=== PATIENT | male | born 1950 | race African-American/Black ===

== ENCOUNTER 2021-02-04 16:10 | Inpatient (IN) | payer MEDICARE, OTHER ==
[~2021-02-04] VITALS: Ht 185.4 cm; Wt 111.8 kg
[2021-02-04] VITALS (20 sets, daily range): BP systolic 64–149; BP diastolic 42–129
[2021-02-04] MEDS ORDERED: AMLODIPINE BESY10 MG PO (16:35)
[2021-02-04] MEDS ORDERED: ERGOCAL62.5 MCG PO (16:35)
[2021-02-04] MEDS ORDERED: CITALOPRAM HBR20 MG PO (16:35)
[2021-02-04] MEDS ORDERED: ZESTRIL10 MG PO (16:35)
[2021-02-04] MEDS ORDERED: VITAMIN C500 M4 PO (16:42)
[2021-02-04] MEDS ORDERED: GUAIFENESI100 MG/5 M PO (16:42)
[2021-02-04] MEDS ORDERED: OMEPRAZOLE40 MG PO (16:42)
[2021-02-04] MEDS ORDERED: ACIDOPHILUS1 EAC1 PO (16:42)
[2021-02-04] MEDS ORDERED: NEPHRO-VITE TABL1 EA PO (16:42)
[2021-02-04] MEDS ORDERED: BASAGLAR K100 UNIT/1 SC (16:42)
[2021-02-04] MEDS ORDERED: ASPIRIN81 MG PO (16:42)
[2021-02-04] MEDS ORDERED: CALCIUM ACETAT667 M1 PO (16:42)
[2021-02-04] MEDS ORDERED: PREDNISONE5 MG PO (16:42)
[2021-02-04] MEDS ORDERED: HUMALOG100 UNIT/1 (16:47)
[2021-02-04] MEDS ORDERED: LIPITOR20 MG PO (16:52)
[2021-02-04] MEDS ORDERED: TYLENOL # 31 EA PO (16:52)
[2021-02-04] MEDS ORDERED: COREG12.5 MG PO (16:52)
[2021-02-04] MEDS ORDERED: NEURONTIN100 MG PO (16:52)
[2021-02-04] MEDS ORDERED: CLONIDINE HCL0.1 MG PO (16:52)
[2021-02-04] MEDS: DEXTROSE 10% 1,000 ML IV SCH (17:21)
[2021-02-04] MEDS: PIPERACILLIN/TAZOBACTAM 2.25 GM in SODIUM CHLORIDE 0.9% 50ML 50 ML IV SCH (17:38)
[2021-02-04] MEDS: NOREPINEPHRINE 8 MG/D5W 250 ML 250 ML IV PRN (18:00)
[2021-02-04] MEDS ORDERED: SODIUM CHLORIDE 0.9% 1000ML 1,000 ML IV ONE (19:30)
[2021-02-04] MEDS: FENTANYL 2000MCG/NS 250 250 ML IV SCH (19:59)
[2021-02-04 20:04] LABS: BASOPHILS % 0.1 % (0.0-1.0); HEMATOCRIT 33.1 % (38.2-49.6); HEMOGLOBIN 9.4 g/dL (14.0-18.0); LYMPHOCYTES # (AUTO) 0.3 (1.0-3.2); LYMPHOCYTES % 4.2 % (18.0-39.1); MEAN CORPUSCULAR HEMOGLOBIN 24.6 pg (28-32); MEAN CORPUSCULAR HGB CONC 28.4 g/dL (31-35); MEAN CORPUSCULAR VOLUME 86.6 fL (81-99); MONOCYTES # (AUTO) 0.3 (0.2-0.8); MONOCYTES % 4.3 % (4.4-11.3); NEUTROPHILS # (AUTO) 6.8 (2.1-6.9); NEUTROPHILS % 91.1 % (38.7-80.0); PLATELET COUNT 129 x10e3/uL (140-360); RED BLOOD COUNT 3.82 x10e6/uL (4.3-5.7); RED CELL DISTRIBUTION WIDTH 19.5 % (11.7-14.4)
[2021-02-04 20:12] LABS: INR 1.09; PARTIAL THROMBOPLASTIN TIME 35.4 seconds (23.8-35.5); PROTHROMBIN TIME 14.7 seconds (11.9-14.5)
[2021-02-04 20:19] LABS: ANION GAP 13.9 mmol/L (8-16); CALCIUM 9.1 mg/dL (8.4-10.2); CREATININE, SERUM 6.98 mg/dL (0.72-1.25); POTASSIUM 3.9 mmol/L (3.5-5.1)
[2021-02-04 20:21] LABS: ABG HCO3 26 mmol/L (22-26); ABG PCO2 57 mmHg (35-45); ABG PH 7.25 (7.35-7.45); ABG PO2 59 mmHg (80-105); ABG TCO2 27
[2021-02-04 21:17] LABS: BAND NEUTROPHILS % (MANUAL) 6 %; LYMPHOCYTES % (MANUAL) 5 % (19-48); METAMYELOCYTES % (MANUAL) 8 % (0-0); MONOCYTES % (MANUAL) 3 % (3.4-9.0); MYELOCYTES % (MANUAL) 3 % (0-0); NEUTROPHILS % (MANUAL) 75 % (40-74); PLATELET ESTIMATE SLIGHTLY DECREASED; PLATELET MORPHOLOGY COMMENT FEW GIANT
[2021-02-04 21:18] LABS: HYPOCHROMASIA SLIGHT
[2021-02-05] VITALS (17 sets, daily range): BP systolic 81–157; BP diastolic 50–130
[2021-02-05] MEDS ORDERED: ATROPINE SULFATE 0.1 MG/ML 10ML SYR ONE (00:16)
[2021-02-05] MEDS: PIPERACILLIN/TAZOBACTAM 2.25 GM in SODIUM CHLORIDE 0.9% 50ML 50 ML IV SCH ×3 (00:32→13:57)
[2021-02-05] MEDS: DEXTROSE 10% 1,000 ML IV SCH ×2 (03:30→13:51)
[2021-02-05 05:45] LABS: BASOPHILS % 0.2 % (0.0-1.0); EOSINOPHILS % 0.2 % (0.0-6.0); HEMATOCRIT 31.2 % (38.2-49.6); HEMOGLOBIN 9.3 g/dL (14.0-18.0); LYMPHOCYTES # (AUTO) 0.4 (1.0-3.2); LYMPHOCYTES % 2.2 % (18.0-39.1); MEAN CORPUSCULAR HEMOGLOBIN 25.3 pg (28-32); MEAN CORPUSCULAR HGB CONC 29.8 g/dL (31-35); MEAN CORPUSCULAR VOLUME 84.8 fL (81-99); MONOCYTES # (AUTO) 0.6 (0.2-0.8); MONOCYTES % 3.3 % (4.4-11.3); NEUTROPHILS # (AUTO) 16.9 (2.1-6.9); NEUTROPHILS % 93.7 % (38.7-80.0); PLATELET COUNT 150 x10e3/uL (140-360); RED BLOOD COUNT 3.68 x10e6/uL (4.3-5.7); RED CELL DISTRIBUTION WIDTH 19.6 % (11.7-14.4)
[2021-02-05 06:37] LABS: ANION GAP 15.3 mmol/L (8-16); CALCIUM 8.9 mg/dL (8.4-10.2); CREATININE, SERUM 7.03 mg/dL (0.72-1.25); POTASSIUM 4.3 mmol/L (3.5-5.1)
[2021-02-05 07:32] LABS: BAND NEUTROPHILS % (MANUAL) 16 %; LYMPHOCYTES % (MANUAL) 3 % (19-48); MONOCYTES % (MANUAL) 1 % (3.4-9.0); NEUTROPHILS % (MANUAL) 80 % (40-74)
[2021-02-05 07:34] LABS: HYPOCHROMASIA SLIGHT; PLATELET ESTIMATE ADEQUATE
[2021-02-05 07:35] LABS: PLATELET MORPHOLOGY COMMENT FEW GIANT
[2021-02-05 07:36] LABS: ANISOCYTOSIS MODERATE; RBC MORPHOLOGY COMMENT ABNORMAL
[2021-02-05 07:37] LABS: POIKILOCYTOSIS SLIGHT
[2021-02-05] MEDS ORDERED: HEPARIN SOD (PORCINE) 1000 UNIT/ML SDV ONE (09:13)
[2021-02-05] MEDS ORDERED: SODIUM CHLORIDE 0.9% 1000ML 2,000 ML ONE (09:13)
[2021-02-05] MEDS ORDERED: GENTAMICIN 120MG/NS 100ML 100 ML IV STA (10:20)
[2021-02-05] MEDS ORDERED: ALBUMIN 25% 25GM 100ML 200 ML ONE (10:24)
[2021-02-05] MEDS ORDERED: Vancomycin IV 1 GM in SODIUM CHLORIDE 0.9% 250ML 250 ML IV ONE ×2 (10:30→14:00)
[2021-02-05] MEDS ORDERED: INSULIN LISPRO 100 UNIT/1 ML 3ML VIAL SQ SCH (11:30)
[2021-02-05 11:48] LABS: % IRON SATURATION 13 % (15-50); IRON 18 ug/dL (65-175); TOTAL IRON BINDING CAPACITY 140 ug/dL (261-478); TRANSFERRIN 100 mg/dL (174-364)
[2021-02-05 14:55] LABS: ABG HCO3 29 mmol/L (22-26); ABG PCO2 51 mmHg (35-45); ABG PH 7.35 (7.35-7.45); ABG PO2 75 mmHg (80-105); ABG TCO2 30
[2021-02-05] MEDS: INSULIN LISPRO 100 UNIT/1 ML 3ML VIAL SQ SCH ×2 (16:30→21:00)
[2021-02-05] MEDS ORDERED: SODIUM CHLORIDE 0.9% 50ML 50 ML ONE (17:35)
[2021-02-05] MEDS ORDERED: IOPAMIDOL 370 MG/ML 200 ML INFUS..BTL INJ ONE (17:36)
[2021-02-05] MEDS: FENTANYL 2000MCG/NS 250 250 ML IV SCH (19:30)
[2021-02-05] MEDS: HEPARIN SOD (PORCINE) 5,000 UNIT/ML VIAL SC SCH (21:43)
[2021-02-06] VITALS (16 sets, daily range): BP systolic 98–136; BP diastolic 45–62
[2021-02-06 05:54] LABS: BASOPHILS % 0.3 % (0.0-1.0); EOSINOPHILS % 0.2 % (0.0-6.0); HEMATOCRIT 26.7 % (38.2-49.6); HEMOGLOBIN 7.9 g/dL (14.0-18.0); LYMPHOCYTES # (AUTO) 0.8 (1.0-3.2); LYMPHOCYTES % 5.8 % (18.0-39.1); MEAN CORPUSCULAR HEMOGLOBIN 24.6 pg (28-32); MEAN CORPUSCULAR HGB CONC 29.6 g/dL (31-35); MEAN CORPUSCULAR VOLUME 83.2 fL (81-99); MONOCYTES # (AUTO) 0.8 (0.2-0.8); MONOCYTES % 6.2 % (4.4-11.3); NEUTROPHILS # (AUTO) 11.6 (2.1-6.9); NEUTROPHILS % 86.9 % (38.7-80.0); PLATELET COUNT 126 x10e3/uL (140-360); RED BLOOD COUNT 3.21 x10e6/uL (4.3-5.7); RED CELL DISTRIBUTION WIDTH 19.6 % (11.7-14.4)
[2021-02-06] MEDS: NOREPINEPHRINE 8 MG/D5W 250 ML 250 ML IV PRN (05:59)
[2021-02-06 06:11] LABS: ANION GAP 12.6 mmol/L (8-16); CALCIUM 8.9 mg/dL (8.4-10.2); CREATININE, SERUM 4.93 mg/dL (0.72-1.25); POTASSIUM 3.6 mmol/L (3.5-5.1)
[2021-02-06] MEDS: INSULIN LISPRO 100 UNIT/1 ML 3ML VIAL SQ SCH ×4 (07:01→20:45)
[2021-02-06] MEDS: MEROPENEM 500 MG in SODIUM CHLORIDE 0.9% 50ML 50 ML IV SCH (08:51)
[2021-02-06] MEDS: HEPARIN SOD (PORCINE) 5,000 UNIT/ML VIAL SC SCH ×2 (08:57→19:47)
[2021-02-06] MEDS ORDERED: LACTULOSE SYRUP 20 GM/30 ML UDC PO ONE (14:50)
[2021-02-06] MEDS ORDERED: Vancomycin IV 1 GM in SODIUM CHLORIDE 0.9% 250ML 250 ML IV SCH (16:00)
[2021-02-06] MEDS: FENTANYL 2000MCG/NS 250 250 ML IV SCH (19:46)
[2021-02-06] MEDS: HYDROCORTISONE SOD SUCCINATE 100 MG VIAL IV SCH (20:45)
[2021-02-07] VITALS (26 sets, daily range): BP systolic 96–146; BP diastolic 37–65
[2021-02-07 05:43] LABS: BASOPHILS % 0.2 % (0.0-1.0); HEMATOCRIT 25.6 % (38.2-49.6); HEMOGLOBIN 7.8 g/dL (14.0-18.0); LYMPHOCYTES # (AUTO) 0.5 (1.0-3.2); LYMPHOCYTES % 3.6 % (18.0-39.1); MEAN CORPUSCULAR HGB CONC 30.5 g/dL (31-35); MEAN CORPUSCULAR VOLUME 82.1 fL (81-99); MONOCYTES # (AUTO) 0.4 (0.2-0.8); MONOCYTES % 3.4 % (4.4-11.3); NEUTROPHILS # (AUTO) 11.8 (2.1-6.9); NEUTROPHILS % 92.3 % (38.7-80.0); PLATELET COUNT 143 x10e3/uL (140-360); RED BLOOD COUNT 3.12 x10e6/uL (4.3-5.7); RED CELL DISTRIBUTION WIDTH 19.9 % (11.7-14.4)
[2021-02-07 05:57] LABS: CALCIUM 9.3 mg/dL (8.4-10.2); CREATININE, SERUM 6.35 mg/dL (0.72-1.25)
[2021-02-07] MEDS: HYDROCORTISONE SOD SUCCINATE 100 MG VIAL IV SCH ×3 (06:19→21:08)
[2021-02-07] MEDS: INSULIN LISPRO 100 UNIT/1 ML 3ML VIAL SQ SCH ×4 (06:19→21:00)
[2021-02-07 07:13] LABS: ANION GAP 14.6 mmol/L (8-16)
[2021-02-07 07:16] LABS: POTASSIUM 4.6 mmol/L (3.5-5.1)
[2021-02-07 07:17] LABS: ABG HCO3 28 mmol/L (22-26); ABG PCO2 45 mmHg (35-45); ABG PH 7.38 (7.35-7.45); ABG PO2 56 mmHg (80-105); ABG TCO2 29
[2021-02-07 09:07] LABS: BAND NEUTROPHILS % (MANUAL) 1 %; LYMPHOCYTES % (MANUAL) 1 % (19-48); MONOCYTES % (MANUAL) 1 % (3.4-9.0); NEUTROPHILS % (MANUAL) 97 % (40-74)
[2021-02-07 09:08] LABS: ANISOCYTOSIS SLIGHT; HYPOCHROMASIA SLIGHT; PLATELET ESTIMATE ADEQUATE; PLATELET MORPHOLOGY COMMENT NORMAL; RBC MORPHOLOGY COMMENT ABNORMAL; TARGET CELLS FEW
[2021-02-07] MEDS ORDERED: SODIUM CHLORIDE 0.9% 1000ML 2,000 ML ONE (09:12)
[2021-02-07] MEDS ORDERED: ALBUMIN 25% 25GM 100ML 100 ML ONE (09:13)
[2021-02-07] MEDS: HEPARIN SOD (PORCINE) 5,000 UNIT/ML VIAL SC SCH ×2 (10:54→21:08)
[2021-02-07] MEDS ORDERED: LIDOCAINE HCL 1% LOCAL INJ 20 ML VIAL INJ ONE (12:00)
[2021-02-07] MEDS: MEROPENEM 500 MG in SODIUM CHLORIDE 0.9% 50ML 50 ML IV SCH (18:01)
[2021-02-07] MEDS: FENTANYL 2000MCG/NS 250 250 ML IV SCH (19:30)
[2021-02-08] VITALS: BP 156/61
[2021-02-08 06:25] LABS: BASOPHILS % 0.2 % (0.0-1.0); HEMATOCRIT 24.9 % (38.2-49.6); HEMOGLOBIN 7.4 g/dL (14.0-18.0); LYMPHOCYTES # (AUTO) 0.6 (1.0-3.2); LYMPHOCYTES % 5.5 % (18.0-39.1); MEAN CORPUSCULAR HEMOGLOBIN 24.8 pg (28-32); MEAN CORPUSCULAR HGB CONC 29.7 g/dL (31-35); MEAN CORPUSCULAR VOLUME 83.6 fL (81-99); MONOCYTES # (AUTO) 0.3 (0.2-0.8); MONOCYTES % 3.1 % (4.4-11.3); NEUTROPHILS % 90.5 % (38.7-80.0); PLATELET COUNT 138 x10e3/uL (140-360); RED BLOOD COUNT 2.98 x10e6/uL (4.3-5.7); RED CELL DISTRIBUTION WIDTH 19.8 % (11.7-14.4)
[2021-02-08] MEDS: HYDROCORTISONE SOD SUCCINATE 100 MG VIAL IV SCH ×2 (06:29→21:47)
[2021-02-08 06:40] LABS: ALBUMIN 2.6 g/dL (3.5-5.0); ALBUMIN/GLOBULIN RATIO 0.9 (0.8-2.0); ANION GAP 12.5 mmol/L (8-16); CALCIUM 9.5 mg/dL (8.4-10.2); CREATININE, SERUM 4.55 mg/dL (0.72-1.25); POTASSIUM 4.5 mmol/L (3.5-5.1)
[2021-02-08 06:59] LABS: MAGNESIUM 1.9 MG/DL (1.3-2.1); PHOSPHORUS 3.3 MG/DL (2.3-4.7)
[2021-02-08] MEDS: INSULIN LISPRO 100 UNIT/1 ML 3ML VIAL SQ SCH ×4 (07:09→21:00)
[2021-02-08] MEDS ORDERED: VANCOMYCIN 1GM/NS 250 ML 250 ML IV SCH (09:00)
[2021-02-08] MEDS: Vancomycin IV 1 GM in SODIUM CHLORIDE 0.9% 250ML 250 ML IV SCH (09:03)
[2021-02-08] MEDS: MEROPENEM 500 MG in SODIUM CHLORIDE 0.9% 50ML 50 ML IV SCH (09:03)
[2021-02-08] MEDS: HEPARIN SOD (PORCINE) 5,000 UNIT/ML VIAL SC SCH ×2 (09:09→21:47)
[2021-02-08 09:23] LABS: HYPOCHROMASIA SLIGHT; LYMPHOCYTES % (MANUAL) 2 % (19-48); MONOCYTES % (MANUAL) 3 % (3.4-9.0); NEUTROPHILS % (MANUAL) 95 % (40-74); PLATELET ESTIMATE ADEQUATE; PLATELET MORPHOLOGY COMMENT NORMAL; RBC MORPHOLOGY COMMENT NORMAL
[2021-02-08] MEDS: IRON SUCROSE 100 MG in SODIUM CHLORIDE 0.9% 100 ML 100 ML IV SCH (11:38)
[2021-02-08 11:54] LABS: ABG PH 7.45 (7.35-7.45)
[2021-02-08 11:55] LABS: ABG HCO3 31 mmol/L (22-26); ABG PCO2 46 mmHg (35-45); ABG PO2 212 mmHg (80-105); ABG TCO2 33
[2021-02-08] MEDS: FENTANYL 2000MCG/NS 250 250 ML IV SCH (19:54)
[2021-02-09 06:16] LABS: BASOPHILS % 0.1 % (0.0-1.0); HEMATOCRIT 25.4 % (38.2-49.6); HEMOGLOBIN 7.4 g/dL (14.0-18.0); LYMPHOCYTES # (AUTO) 0.5 (1.0-3.2); MEAN CORPUSCULAR HEMOGLOBIN 24.4 pg (28-32); MEAN CORPUSCULAR HGB CONC 29.1 g/dL (31-35); MEAN CORPUSCULAR VOLUME 83.8 fL (81-99); MONOCYTES # (AUTO) 0.3 (0.2-0.8); MONOCYTES % 3.4 % (4.4-11.3); NEUTROPHILS # (AUTO) 6.8 (2.1-6.9); NEUTROPHILS % 89.1 % (38.7-80.0); PLATELET COUNT 147 x10e3/uL (140-360); RED BLOOD COUNT 3.03 x10e6/uL (4.3-5.7); RED CELL DISTRIBUTION WIDTH 19.9 % (11.7-14.4)
[2021-02-09 06:33] LABS: ANION GAP 13.2 mmol/L (8-16); CREATININE, SERUM 5.71 mg/dL (0.72-1.25); POTASSIUM 5.2 mmol/L (3.5-5.1)
[2021-02-09] MEDS: MEROPENEM 500 MG in SODIUM CHLORIDE 0.9% 50ML 50 ML IV SCH (08:14)
[2021-02-09] MEDS: Vancomycin IV 1 GM in SODIUM CHLORIDE 0.9% 250ML 250 ML IV SCH (08:14)
[2021-02-09] MEDS: HYDROCORTISONE SOD SUCCINATE 100 MG VIAL IV SCH ×2 (08:14→21:00)
[2021-02-09] MEDS: HEPARIN SOD (PORCINE) 5,000 UNIT/ML VIAL SC SCH ×2 (08:17→21:00)
[2021-02-09] MEDS: INSULIN LISPRO 100 UNIT/1 ML 3ML VIAL SQ SCH ×4 (08:18→21:00)
[2021-02-09] MEDS: IRON SUCROSE 100 MG in SODIUM CHLORIDE 0.9% 100 ML 100 ML IV SCH (12:25)
[2021-02-09] MEDS ORDERED: SODIUM CHLORIDE 0.9% 1000ML 2,000 ML ONE (13:09)
[2021-02-09] MEDS: FENTANYL 2000MCG/NS 250 250 ML IV SCH (19:30)
[2021-02-10] VITALS (18 sets, daily range): BP systolic 110–187; BP diastolic 49–92
[2021-02-10] MEDS: INSULIN LISPRO 100 UNIT/1 ML 3ML VIAL SQ SCH ×4 (07:30→21:00)
[2021-02-10] MEDS: Vancomycin IV 1 GM in SODIUM CHLORIDE 0.9% 250ML 250 ML IV SCH (09:00)
[2021-02-10] MEDS: HEPARIN SOD (PORCINE) 5,000 UNIT/ML VIAL SC SCH ×2 (09:00→22:31)
[2021-02-10] MEDS: MEROPENEM 500 MG in SODIUM CHLORIDE 0.9% 50ML 50 ML IV SCH (09:00)
[2021-02-10] MEDS: HYDROCORTISONE SOD SUCCINATE 100 MG VIAL IV SCH ×2 (09:00→22:31)
[2021-02-10] MEDS ORDERED: HYDRALAZINE HCL 20 MG/ML VIAL ONE (10:26)
[2021-02-10] MEDS: IRON SUCROSE 100 MG in SODIUM CHLORIDE 0.9% 100 ML 100 ML IV SCH (11:00)
[2021-02-10] MEDS ORDERED: SODIUM CHLORIDE 0.9% 250ML 250 ML IV PRN (12:30)
[2021-02-10] MEDS ORDERED: ALBUMIN 25% 12.5GM 50ML 50 ML IV PRN (12:30)
[2021-02-10] MEDS ORDERED: MANNITOL 25% 12.5GM/50 ML VIAL IV PRN (12:30)
[2021-02-10] MEDS: FENTANYL 2000MCG/NS 250 250 ML IV SCH ×2 (14:49→17:27)
[2021-02-10 16:03] LABS: ABG HCO3 32 mmol/L (22-26); ABG PCO2 48 mmHg (35-45); ABG PH 7.43 (7.35-7.45); ABG PO2 95 mmHg (80-105); ABG TCO2 33
[2021-02-10 17:28] LABS: BASOPHILS % 0.1 % (0.0-1.0); HEMATOCRIT 25.7 % (38.2-49.6); HEMOGLOBIN 7.6 g/dL (14.0-18.0); LYMPHOCYTES # (AUTO) 0.6 (1.0-3.2); LYMPHOCYTES % 8.1 % (18.0-39.1); MEAN CORPUSCULAR HEMOGLOBIN 24.7 pg (28-32); MEAN CORPUSCULAR HGB CONC 29.6 g/dL (31-35); MEAN CORPUSCULAR VOLUME 83.4 fL (81-99); MONOCYTES # (AUTO) 0.4 (0.2-0.8); MONOCYTES % 5.5 % (4.4-11.3); NEUTROPHILS # (AUTO) 6.8 (2.1-6.9); NEUTROPHILS % 85.8 % (38.7-80.0); PLATELET COUNT 124 x10e3/uL (140-360); RED BLOOD COUNT 3.08 x10e6/uL (4.3-5.7); RED CELL DISTRIBUTION WIDTH 19.9 % (11.7-14.4)
[2021-02-10 17:29] LABS: ALBUMIN 2.6 g/dL (3.5-5.0); ALBUMIN/GLOBULIN RATIO 0.9 (0.8-2.0); ANION GAP 12.7 mmol/L (8-16); CALCIUM 9.4 mg/dL (8.4-10.2); CREATININE, SERUM 4.33 mg/dL (0.72-1.25); POTASSIUM 4.7 mmol/L (3.5-5.1)
[2021-02-11] VITALS (25 sets, daily range): BP systolic 114–158; BP diastolic 51–97
[2021-02-11 05:43] LABS: BASOPHILS % 0.1 % (0.0-1.0); EOSINOPHILS % 0.5 % (0.0-6.0); HEMATOCRIT 27.7 % (38.2-49.6); HEMOGLOBIN 8.3 g/dL (14.0-18.0); LYMPHOCYTES # (AUTO) 1.2 (1.0-3.2); LYMPHOCYTES % 13.9 % (18.0-39.1); MEAN CORPUSCULAR HEMOGLOBIN 24.6 pg (28-32); MEAN CORPUSCULAR VOLUME 82.2 fL (81-99); MONOCYTES # (AUTO) 0.5 (0.2-0.8); MONOCYTES % 6.3 % (4.4-11.3); NEUTROPHILS # (AUTO) 6.5 (2.1-6.9); NEUTROPHILS % 78.7 % (38.7-80.0); PLATELET COUNT 146 x10e3/uL (140-360); RED BLOOD COUNT 3.37 x10e6/uL (4.3-5.7); RED CELL DISTRIBUTION WIDTH 20.1 % (11.7-14.4)
[2021-02-11 06:05] LABS: ALBUMIN 2.7 g/dL (3.5-5.0); ANION GAP 12.4 mmol/L (8-16); CALCIUM 9.9 mg/dL (8.4-10.2); CREATININE, SERUM 5.25 mg/dL (0.72-1.25); MAGNESIUM 2.1 MG/DL (1.3-2.1); PHOSPHORUS 3.8 MG/DL (2.3-4.7); POTASSIUM 4.4 mmol/L (3.5-5.1)
[2021-02-11] MEDS: INSULIN LISPRO 100 UNIT/1 ML 3ML VIAL SQ SCH ×4 (07:30→20:39)
[2021-02-11] MEDS: HYDROCORTISONE SOD SUCCINATE 100 MG VIAL IV SCH (08:43)
[2021-02-11] MEDS: MEROPENEM 500 MG in SODIUM CHLORIDE 0.9% 50ML 50 ML IV SCH (08:43)
[2021-02-11] MEDS: HEPARIN SOD (PORCINE) 5,000 UNIT/ML VIAL SC SCH ×2 (08:44→20:40)
[2021-02-11] MEDS ORDERED: SODIUM CHLORIDE 0.9% 1000ML 2,000 ML ONE (11:40)
[2021-02-11 17:35] LABS: ABG HCO3 32 mmol/L (22-26); ABG PCO2 48 mmHg (35-45); ABG PH 7.43 (7.35-7.45); ABG PO2 90 mmHg (80-105); ABG TCO2 33
[2021-02-11] MEDS: FENTANYL 2000MCG/NS 250 250 ML IV SCH ×2 (19:30→23:59)
[2021-02-12] VITALS (26 sets, daily range): BP systolic 102–160; BP diastolic 45–70
[2021-02-12 04:54] LABS: BASOPHILS % 0.3 % (0.0-1.0); EOSINOPHILS # (AUTO) 0.1 (0.0-0.4); EOSINOPHILS % 1.9 % (0.0-6.0); HEMATOCRIT 25.6 % (38.2-49.6); HEMOGLOBIN 7.6 g/dL (14.0-18.0); LYMPHOCYTES # (AUTO) 1.2 (1.0-3.2); LYMPHOCYTES % 17.6 % (18.0-39.1); MEAN CORPUSCULAR HEMOGLOBIN 24.6 pg (28-32); MEAN CORPUSCULAR HGB CONC 29.7 g/dL (31-35); MEAN CORPUSCULAR VOLUME 82.8 fL (81-99); MONOCYTES # (AUTO) 0.5 (0.2-0.8); MONOCYTES % 7.5 % (4.4-11.3); NEUTROPHILS # (AUTO) 4.9 (2.1-6.9); NEUTROPHILS % 72.3 % (38.7-80.0); PLATELET COUNT 119 x10e3/uL (140-360); RED BLOOD COUNT 3.09 x10e6/uL (4.3-5.7)
[2021-02-12 05:21] LABS: ALBUMIN 2.8 g/dL (3.5-5.0); ALBUMIN/GLOBULIN RATIO 1.2 (0.8-2.0); ANION GAP 10.1 mmol/L (8-16); CALCIUM 9.4 mg/dL (8.4-10.2); CREATININE, SERUM 4.33 mg/dL (0.72-1.25); POTASSIUM 4.1 mmol/L (3.5-5.1)
[2021-02-12] MEDS: INSULIN LISPRO 100 UNIT/1 ML 3ML VIAL SQ SCH ×4 (07:30→21:00)
[2021-02-12 08:06] LABS: ABG HCO3 31 mmol/L (22-26); ABG PCO2 51 mmHg (35-45); ABG PO2 87 mmHg (80-105); ABG TCO2 33
[2021-02-12] MEDS: HEPARIN SOD (PORCINE) 5,000 UNIT/ML VIAL SC SCH (08:14)
[2021-02-12] MEDS: MEROPENEM 500 MG in SODIUM CHLORIDE 0.9% 50ML 50 ML IV SCH (08:14)
[2021-02-12] MEDS: DEXTROSE 50% SYRINGE 50 ML IV PRN ×2 (11:46→17:36)
[2021-02-13] VITALS (24 sets, daily range): BP systolic 90–165; BP diastolic 46–84
[2021-02-13 04:57] LABS: BASOPHILS % 0.2 % (0.0-1.0); EOSINOPHILS # (AUTO) 0.2 (0.0-0.4); EOSINOPHILS % 2.4 % (0.0-6.0); HEMATOCRIT 28.5 % (38.2-49.6); HEMOGLOBIN 8.4 g/dL (14.0-18.0); LYMPHOCYTES # (AUTO) 1.2 (1.0-3.2); LYMPHOCYTES % 14.6 % (18.0-39.1); MEAN CORPUSCULAR HEMOGLOBIN 24.4 pg (28-32); MEAN CORPUSCULAR HGB CONC 29.5 g/dL (31-35); MEAN CORPUSCULAR VOLUME 82.8 fL (81-99); MONOCYTES # (AUTO) 0.5 (0.2-0.8); MONOCYTES % 6.2 % (4.4-11.3); NEUTROPHILS # (AUTO) 6.4 (2.1-6.9); PLATELET COUNT 137 x10e3/uL (140-360); RED BLOOD COUNT 3.44 x10e6/uL (4.3-5.7); RED CELL DISTRIBUTION WIDTH 20.7 % (11.7-14.4)
[2021-02-13 05:07] LABS: INR 1.11
[2021-02-13 05:08] LABS: PARTIAL THROMBOPLASTIN TIME 37.6 seconds (23.8-35.5)
[2021-02-13 05:28] LABS: ALBUMIN 2.9 g/dL (3.5-5.0); ALBUMIN/GLOBULIN RATIO 1.2 (0.8-2.0); ANION GAP 11.1 mmol/L (8-16); CALCIUM 9.8 mg/dL (8.4-10.2); CREATININE, SERUM 5.57 mg/dL (0.72-1.25); POTASSIUM 4.1 mmol/L (3.5-5.1)
[2021-02-13 05:44] LABS: PHOSPHORUS 3.6 MG/DL (2.3-4.7)
[2021-02-13] MEDS: INSULIN LISPRO 100 UNIT/1 ML 3ML VIAL SQ SCH ×4 (07:30→21:00)
[2021-02-13] MEDS: MEROPENEM 500 MG in SODIUM CHLORIDE 0.9% 50ML 50 ML IV SCH (09:22)
[2021-02-13] MEDS ORDERED: SODIUM CHLORIDE 0.9% 1000ML 2,000 ML ONE (09:47)
[2021-02-13] MEDS: HYDRALAZINE HCL 20 MG/ML VIAL IV PRN (22:13)
[2021-02-14] VITALS (24 sets, daily range): BP systolic 131–174; BP diastolic 56–76
[2021-02-14] MEDS: INSULIN LISPRO 100 UNIT/1 ML 3ML VIAL SQ SCH ×4 (07:30→20:58)
[2021-02-14] MEDS: CEFEPIME 0.5 GM in SODIUM CHLORIDE 0.9% 50ML 50 ML IV SCH (09:36)
[2021-02-14] MEDS ORDERED: ASPIRIN 325 MG TAB PO NR (16:45)
[2021-02-14] MEDS ORDERED: ASPIRIN 81 MG CHEW TAB PO NR (17:00)
[2021-02-14] MEDS: ATORVASTATIN 20 MG TAB PO SCH (20:58)
[2021-02-14] MEDS: HYDRALAZINE HCL 20 MG/ML VIAL IV PRN (20:59)
[2021-02-15] VITALS (10 sets, daily range): BP systolic 150–163; BP diastolic 6–98
[2021-02-15 06:00] LABS: BASOPHILS % 0.3 % (0.0-1.0); EOSINOPHILS # (AUTO) 0.4 (0.0-0.4); EOSINOPHILS % 3.7 % (0.0-6.0); HEMATOCRIT 29.7 % (38.2-49.6); HEMOGLOBIN 8.8 g/dL (14.0-18.0); LYMPHOCYTES # (AUTO) 1.1 (1.0-3.2); LYMPHOCYTES % 11.2 % (18.0-39.1); MEAN CORPUSCULAR HEMOGLOBIN 24.5 pg (28-32); MEAN CORPUSCULAR HGB CONC 29.6 g/dL (31-35); MEAN CORPUSCULAR VOLUME 82.7 fL (81-99); MONOCYTES # (AUTO) 0.5 (0.2-0.8); MONOCYTES % 5.4 % (4.4-11.3); NEUTROPHILS # (AUTO) 7.5 (2.1-6.9); NEUTROPHILS % 79.1 % (38.7-80.0); PLATELET COUNT 151 x10e3/uL (140-360); RED BLOOD COUNT 3.59 x10e6/uL (4.3-5.7); RED CELL DISTRIBUTION WIDTH 21.2 % (11.7-14.4)
[2021-02-15 06:23] LABS: ANION GAP 10.9 mmol/L (8-16); CALCIUM 10.1 mg/dL (8.4-10.2); CHOL/HDL RATIO 2.6 (3.9-4.7); CREATININE, SERUM 5.57 mg/dL (0.72-1.25); POTASSIUM 3.9 mmol/L (3.5-5.1)
[2021-02-15] MEDS: INSULIN LISPRO 100 UNIT/1 ML 3ML VIAL SQ SCH ×4 (07:30→21:00)
[2021-02-15] MEDS: CEFEPIME 0.5 GM in SODIUM CHLORIDE 0.9% 50ML 50 ML IV SCH (09:07)
[2021-02-15] MEDS: ASPIRIN 81 MG ENTERIC COATED PO SCH (09:07)
[2021-02-15] MEDS ORDERED: SODIUM CHLORIDE 0.9% 100 ML ONE (14:59)
[2021-02-15] MEDS ORDERED: IOPAMIDOL 370 MG/ML 200 ML INFUS..BTL INJ ONE (14:59)
[2021-02-15] MEDS: ATORVASTATIN 20 MG TAB PO SCH (21:25)
[2021-02-16] VITALS (8 sets, daily range): BP systolic 146–174; BP diastolic 62–89
[2021-02-16 05:17] LABS: BASOPHILS % 0.2 % (0.0-1.0); EOSINOPHILS # (AUTO) 0.3 (0.0-0.4); EOSINOPHILS % 2.3 % (0.0-6.0); HEMATOCRIT 28.8 % (38.2-49.6); HEMOGLOBIN 8.7 g/dL (14.0-18.0); LYMPHOCYTES # (AUTO) 0.8 (1.0-3.2); MEAN CORPUSCULAR HEMOGLOBIN 24.8 pg (28-32); MEAN CORPUSCULAR HGB CONC 30.2 g/dL (31-35); MEAN CORPUSCULAR VOLUME 82.1 fL (81-99); MONOCYTES # (AUTO) 0.6 (0.2-0.8); NEUTROPHILS # (AUTO) 11.9 (2.1-6.9); PLATELET COUNT 162 x10e3/uL (140-360); RED BLOOD COUNT 3.51 x10e6/uL (4.3-5.7); RED CELL DISTRIBUTION WIDTH 21.5 % (11.7-14.4)
[2021-02-16 05:51] LABS: ANION GAP 15.3 mmol/L (8-16); CALCIUM 10.4 mg/dL (8.4-10.2); CREATININE, SERUM 6.36 mg/dL (0.72-1.25); POTASSIUM 4.3 mmol/L (3.5-5.1)
[2021-02-16] MEDS: INSULIN LISPRO 100 UNIT/1 ML 3ML VIAL SQ SCH ×4 (07:30→21:00)
[2021-02-16] MEDS ORDERED: SODIUM CHLORIDE 0.9% 1000ML 2,000 ML ONE (07:39)
[2021-02-16] MEDS: ASPIRIN 81 MG ENTERIC COATED PO SCH (09:00)
[2021-02-16] MEDS: CEFEPIME 0.5 GM in SODIUM CHLORIDE 0.9% 50ML 50 ML IV SCH (12:49)
[2021-02-16] MEDS: ATORVASTATIN 20 MG TAB PO SCH (21:17)
[2021-02-17] VITALS (8 sets, daily range): BP systolic 133–169; BP diastolic 59–76
[2021-02-17] MEDS: INSULIN LISPRO 100 UNIT/1 ML 3ML VIAL SQ SCH ×4 (07:30→20:09)
[2021-02-17] MEDS: ASPIRIN 81 MG ENTERIC COATED PO SCH (09:21)
[2021-02-17] MEDS: FERROUS SULFATE 325 MG TAB PO SCH (09:21)
[2021-02-17] MEDS: CEFEPIME 0.5 GM in SODIUM CHLORIDE 0.9% 50ML 50 ML IV SCH (09:22)
[2021-02-17] MEDS ORDERED: GUAIFENESIN/DEXTROMETHORPHAN LIQD 5 ML UDC NG PRN (11:15)
[2021-02-17] MEDS: ATORVASTATIN 20 MG TAB PO SCH (21:55)
[2021-02-18] VITALS (10 sets, daily range): BP systolic 117–159; BP diastolic 33–90
[2021-02-18] MEDS: INSULIN LISPRO 100 UNIT/1 ML 3ML VIAL SQ SCH ×4 (07:30→20:52)
[2021-02-18] MEDS: CEFEPIME 0.5 GM in SODIUM CHLORIDE 0.9% 50ML 50 ML IV SCH (08:29)
[2021-02-18] MEDS: FERROUS SULFATE 325 MG TAB PO SCH (08:29)
[2021-02-18] MEDS: ASPIRIN 81 MG ENTERIC COATED PO SCH (08:29)
[2021-02-18] MEDS ORDERED: SODIUM CHLORIDE 0.9% 1000ML 2,000 ML ONE (14:00)
[2021-02-18] MEDS: ATORVASTATIN 20 MG TAB PO SCH (20:52)
[2021-02-18] MEDS ORDERED: VANCOMYCIN 750MG/NS 150ML IVPB 150 ML IV SCH (21:00)
[2021-02-19] VITALS (7 sets, daily range): BP systolic 115–152; BP diastolic 48–115
[2021-02-19] MEDS: HYDRALAZINE HCL 20 MG/ML VIAL IV PRN (05:31)
[2021-02-19 06:00] LABS: BASOPHILS # (AUTO) 0.1 (0.0-0.1); BASOPHILS % 0.8 % (0.0-1.0); EOSINOPHILS # (AUTO) 0.2 (0.0-0.4); EOSINOPHILS % 2.1 % (0.0-6.0); HEMATOCRIT 26.4 % (38.2-49.6); HEMOGLOBIN 7.8 g/dL (14.0-18.0); LYMPHOCYTES # (AUTO) 1.3 (1.0-3.2); LYMPHOCYTES % 15.1 % (18.0-39.1); MEAN CORPUSCULAR HEMOGLOBIN 24.8 pg (28-32); MEAN CORPUSCULAR HGB CONC 29.5 g/dL (31-35); MEAN CORPUSCULAR VOLUME 83.8 fL (81-99); MONOCYTES # (AUTO) 0.7 (0.2-0.8); MONOCYTES % 8.2 % (4.4-11.3); NEUTROPHILS # (AUTO) 6.4 (2.1-6.9); NEUTROPHILS % 73.6 % (38.7-80.0); PLATELET COUNT 190 x10e3/uL (140-360); RED BLOOD COUNT 3.15 x10e6/uL (4.3-5.7); RED CELL DISTRIBUTION WIDTH 21.5 % (11.7-14.4)
[2021-02-19 06:37] LABS: ANION GAP 12.3 mmol/L (8-16); CALCIUM 8.7 mg/dL (8.4-10.2); CREATININE, SERUM 3.75 mg/dL (0.72-1.25); POTASSIUM 4.3 mmol/L (3.5-5.1)
[2021-02-19] MEDS: INSULIN LISPRO 100 UNIT/1 ML 3ML VIAL SQ SCH ×2 (07:19→11:30)
[2021-02-19] MEDS: CEFEPIME 0.5 GM in SODIUM CHLORIDE 0.9% 50ML 50 ML IV SCH (08:14)
[2021-02-19] MEDS: FERROUS SULFATE 325 MG TAB PO SCH (08:14)
[2021-02-19] MEDS: ASPIRIN 81 MG ENTERIC COATED PO SCH (08:14)
[2021-02-19] MEDS ORDERED: ATORVASTATIN 40 MG TAB PO SCH (21:00)
== END 2021-02-19 14:20 | DRG 314 ==
LOC: ICU 16:10 → MED/SURG 02-15 17:11 → MED/SURG3 02-16 16:50
PROVIDERS: ADMIT Internal Medicine; ATTEND Internal Medicine
PROC: 5A1955Z Respiratory Ventilation, Greater than 96 Consecutive Hours (ICD-10-PCS; principal; 2021-02-04)
PROC: 0BH17EZ Insertion of Endotracheal Airway into Trachea, Via Natural or Artificial Opening (ICD-10-PCS; 2021-02-04)
PROC: 5A1D70Z Performance of Urinary Filtration, Intermittent, Less than 6 Hours Per Day (ICD-10-PCS; 2021-02-04)
PROC: 02PY33Z Removal of Infusion Device from Great Vessel, Percutaneous Approach (ICD-10-PCS; 2021-02-08)
DX: T80.211A Bloodstream infection due to central venous catheter, initial encounter (principal); J96.22 Acute and chronic respiratory failure with hypercapnia; J96.21 Acute and chronic respiratory failure with hypoxia; R65.21 Severe sepsis with septic shock; N18.6 End stage renal disease; J15.6 Pneumonia due to other Gram-negative bacteria; J69.0 Pneumonitis due to inhalation of food and vomit; A41.2 Sepsis due to unspecified staphylococcus; I63.9 Cerebral infarction, unspecified; I33.0 Acute and subacute infective endocarditis; I12.0 Hypertensive chronic kidney disease with stage 5 chronic kidney disease or end stage renal disease; J44.0 Chronic obstructive pulmonary disease with (acute) lower respiratory infection; J44.1 Chronic obstructive pulmonary disease with (acute) exacerbation; E27.40 Unspecified adrenocortical insufficiency; G93.40 Encephalopathy, unspecified; E11.649 Type 2 diabetes mellitus with hypoglycemia without coma; E11.22 Type 2 diabetes mellitus with diabetic chronic kidney disease; Z86.16 Personal history of COVID-19; Z74.01 Bed confinement status; E66.01 Morbid (severe) obesity due to excess calories; Z68.32 Body mass index [BMI] 32.0-32.9, adult; Z87.01 Personal history of pneumonia (recurrent)
CPT/HCPCS: 31500; 36415; 36600; 70450; 70496; 70498; 70551; 71045; 71260; 74018; 80048; 80053; 80061; 80202; 82533; 82805; 82948; 83036; 83540; 83735; 84100; 84439; 84443; 84466; 84681; 85025; 85610; 85730; 86704; 86705; 86706; 87040; 87070; 87186; 87205; 87340; 90962; 92950; 93005; 93306; 93307; 93880; 94002; 94003; 94640; 94667; 94668; 94669; 95812; 97139; 99251; J0360; J0692; J1580; J1644; J1720; J1756; J2001; J2185; J2543; J3370; J7030; J7050; J7799; P9047; Q9967